=== PATIENT | male | born 1975 | race Caucasian/White ===

== ENCOUNTER 2021-07-19 13:16 | Emergency (ER) | payer OTHER ==
[~2021-07-19] VITALS: Ht 185.4 cm; Wt 105.2 kg
--- NOTE | 2021-07-19 14:25 | PHYS DOC ---
General Adult EDM: Chief Complaint: HEADACHE HPI: HPI: Patient is a 46-year-old male who presents to the emergency department for left- sided headache with tingling to his entire left side that started last night at 10 PM. Patient reports that his headache was worse but has been better now he rates it 4 out of 10. Patient denies a history of headaches. No treatment prior to arrival. Patient denies any unilateral weakness, chest pain, shortness of breath, nausea, vomiting, vision changes, photophobia or phonophobia. Review of Systems: Review of Systems: Eyes: See HPI HENT: See HPI Respiratory: See HPI Cardiovascular: See HPI GI: See HPI Neurologic: See HPI Allergies: Allergies: Allergies Coded Allergies Type Severity Reaction Last Updated Verified No Known Drug Allergies 07/19/21 No Physical Exam: PE: Constitutional: Well developed, well nourished, no acute distress, non-toxic appearance. [] HENT: Normocephalic, atraumatic, bilateral external ears normal, oropharynx moist, no oral exudates, nose normal. [] Eyes: PERRL, 5 mm bilaterally, EOMI, conjunctiva normal, no discharge. [] Neck: Normal range of motion, no tenderness, no neutral rigidity, supple, no stridor. [] Cardiovascular:Heart rate regular rhythm, no murmur [] Lungs & Thorax: Bilateral breath sounds clear to auscultation [] Abdomen: Bowel sounds normal, soft, no tenderness, no masses, no pulsatile masses. [] Skin: Warm, dry, no erythema, no rash. [] Back: No tenderness, normal range of motion Extremities: No tenderness, no cyanosis, no clubbing, ROM intact, no edema. [] Neurologic: Alert and oriented X 3, normal motor function, normal sensory function, no focal deficits noted, no limb ataxia, no pronator drift, patient moving all 4 extremities equally, sensation intact bilateral upper and lower extremities, no slurred speech Psychologic: Affect normal, judgement normal, mood normal. [] Current Patient Data: Labs: Laboratory Tests Test 07/19/21 14:15 White Blood Count 8.2 x10^3/uL Red Blood Count 5.34 x10^6/uL Hemoglobin 15.6 g/dL Hematocrit 45.8 % Mean Corpuscular Volume 86 fL Mean Corpuscular Hemoglobin 29 pg Mean Corpuscular Hemoglobin Concent 34 g/dL Red Cell Distribution Width 13.4 % Platelet Count 162 x10^3/uL Neutrophils (%) (Auto) 60 % Lymphocytes (%) (Auto) 30 % Monocytes (%) (Auto) 6 % Eosinophils (%) (Auto) 3 % Basophils (%) (Auto) 1 % Neutrophils # (Auto) 5.0 x10^3uL Lymphocytes # (Auto) 2.5 x10^3/uL Monocytes # (Auto) 0.5 x10^3/uL Eosinophils # (Auto) 0.3 x10^3/uL Basophils # (Auto) 0.0 x10^3/uL Sodium Level 136 mmol/L Potassium Level 3.9 mmol/L Chloride Level 102 mmol/L Carbon Dioxide Level 31 mmol/L Anion Gap 3 Blood Urea Nitrogen 19 mg/dL Creatinine 1.1 mg/dL Estimated GFR (Cockcroft-Gault) 72.7 BUN/Creatinine Ratio 17 Glucose Level 88 mg/dL Calcium Level 9.3 mg/dL Total Bilirubin 0.7 mg/dL Aspartate Amino Transf (AST/SGOT) 29 U/L Alanine Aminotransferase (ALT/SGPT) 40 U/L Alkaline Phosphatase 64 U/L Troponin I High Sensitivity 39 ng/L Total Protein 7.3 g/dL Albumin 4.2 g/dL Albumin/Globulin Ratio 1.4 Current Medications Medications (Trade) Dose Ordered Sig/Nay Route PRN Reason Start Time Stop Time Status Last Admin Dose Admin Sodium Chloride 1,000 ml @ 1,000 mls/hr 1X ONCE IV 07/19/21 14:30 07/19/21 15:29 DC 07/19/21 15:02 Prochlorperazine Edisylate (Compazine) 10 mg 1X ONCE IV 07/19/21 14:30 07/19/21 14:31 DC 07/19/21 15:04 Diphenhydramine HCl (Benadryl) 25 mg 1X ONCE IVP 07/19/21 14:30 07/19/21 14:31 DC 07/19/21 15:07 Ketorolac Tromethamine (Toradol 30mg Vial) 30 mg 1X ONCE IVP 07/19/21 14:30 07/19/21 14:31 DC 07/19/21 15:06 EKG: EKG: EKG performed by ER staff at 1417 shows sinus rhythm with a heart rate of 63, QTC is 412, no STEMI read by Dr. Salmeron [] Radiology/Procedures: Radiology/Procedures: [] Impressions: REASON: HEADACHE, L SIDED TINGLING PROCEDURE: CT HEAD WO CONTRAST EXAMINATION: CT head without IV contrast. INDICATION:46 years, Male, left-sided tingling. COMPARISON: None TECHNIQUE: Spiral acquisition of contiguous images from the skull base to the vertex were obtained. Sagittal and coronal 2D reformatted series were provided by the technologist. Soft tissue and bone window algorithms were reviewed. Exposure: One or more of the following individualized dose reduction techniques were utilized for this examination: 1. Automated exposure control 2. Adjustment of the mA and/or kV according to patient size 3. Use of iterative reconstruction technique. FINDINGS: Neither mass, midline shift, intracranial hemorrhage, acute/subacute ischemic changes, nor extraaxial fluid collections are seen. The brain parenchyma is normal in appearance. The ventricles are normal in size. The paranasal sinuses, mastoid air cells, and middle ears are clear.The orbital contents appear within normal limits. IMPRESSION: No evidence of acute intracranial abnormality. Electronically signed by: Ward Obando MD (07/19/2021 2:49 PM) [facility] DICTATED AND SIGNED BY: WARD OBANDO MD DATE: 07/19/21 144 CC: EMERGENCY,DEPARTMENT; CHIVO FLEMING APRN; PCP,NO ~ Heart Score: C/O Chest Pain: No Risk Factors: Risk Factors: DM, Current or recent (<one month) smoker, HTN, HLP, family history of CAD, obesity. Risk Scores: Score 0 - 3: 2.5% MACE over next 6 weeks - Discharge Home Score 4 - 6: 20.3% MACE over next 6 weeks - Admit for Clinical Observation Score 7 - 10: 72.7% MACE over next 6 weeks - Early Invasive Strategies Course & Med Decision Making: Course & Med Decision Making Pertinent Labs and Imaging studies reviewed. (See chart for details) [] Patient presents to the emergency department for left-sided headache with tingling down the left side of his body that started 10 PM last night. Patient reports he does not have a history of headaches. Work-up in the ER consisted of blood work including troponin, EGD, CT imaging of head patient was treated with migraine cocktail. Patient's work-up in the ER was unremarkable. Following treatment in the emergency department he reports that his headache has resolved but he continues to have mild tingling noted to his left side which has improved. Patient has an unremarkable neuro exam. His NIHSS was 0. Patient's sensation is intact to bilateral upper and lower extremities as well as face. Discussed with supervising physician. Patient's likely experiencing a complex migraine. He is advised to take Tylenol and ibuprofen at home for his pain and he was given neurology follow-up. I discussed with patient all findings and diagnostic testing as well as the need to follow-up with PCP for further evaluation and treatment or return to the ER if any new or worsening symptoms. Strict return precautions were also discussed at length. Patient voiced understanding and agreement with the plan. Patient is hemodynamically stable at the time of disposition. Dragon Disclaimer: Dragon Disclaimer: This electronic medical record was generated, in whole or in part, using a voice recognition dictation system. NIH Stroke Scale: NIH Stroke Scale Response (Comments) Value Level of Consciousness: 0 Alert/Responsive 0 LOC Questions: 0 Answers both correctly 0 LOC Commands: 0 Performs both tasks 0 Best Gaze: 0 Normal 0 Visual: 0 No visual loss 0 Facial Palsy: 0 Normal, symmetrical 0 Motor - Left Arm 0 No drift 0 Motor - Right Arm 0 No drift 0 Motor - Left Leg 0 No drift 0 Motor: Right Leg 0 No drift 0 Limb Ataxia: 0 Absent 0 Best Language: 0 Normal 0 Dysathria: 0 Normal 0 Extinction and Inattention: 0 Normal 0 Total 0 Departure Departure: Impression: Primary Impression: Headache Qualified Codes: R51.9 - Headache, unspecified Disposition: HOME / SELF CARE / HOMELESS Condition: GOOD Referrals: PCP,NO (PCP) Patient Instructions: Migraine Headache Additional Instructions: You are seen in the emergency department for headache and tingling. You are likely experiencing a complex migraine. Please take Tylenol and ibuprofen at home for your pain. Can also add Benadryl. Follow-up with your primary care provider tomorrow regarding your ER visit. You may need to follow-up with a neurologist on the status of this discharge paperwork. Please increase your fluids and rest. Return to the emergency department if you develop worsening of your headache, chest pain, shortness of breath, high fevers refractory treatment, intractable nausea or vomiting, confusion, speech changes, facial droop, vision changes pain or worsening concerns. CHIVO FLEMING DYNAMOMETER MECHANIC Jul 19, 2021 14:25
[2021-07-19] MEDS ORDERED: PROCHLORPERAZINE 10 MG/2 ML VIAL. IV ONE (14:30)
[2021-07-19] MEDS ORDERED: diphenhydrAMINE 50 MG/ML VIAL IVP ONE (14:30)
[2021-07-19] MEDS ORDERED: IV NORMAL SALINE 1,000ML 1,000 ML IV ONE (14:30)
[2021-07-19] MEDS ORDERED: KETOROLAC 30 MG/ML VIAL. IVP ONE (14:30)
[2021-07-19 14:31] LABS: BASO % 1 % (0-3); EOS # 0.3 x10^3/uL (0.0-0.7); EOS % 3 % (0-3); HEMATOCRIT 45.8 % (39.0-53.0); HEMOGLOBIN 15.6 g/dL (13.0-17.5); LYMPH # 2.5 x10^3/uL (1.0-4.8); LYMPH % 30 % (24-48); MEAN CORPUSCULAR HEMOGLOBIN 29 pg (25-35); MEAN CORPUSCULAR HGB CONC 34 g/dL (31-37); MEAN CORPUSCULAR VOLUME 86 fL (79-100); MONO # 0.5 x10^3/uL (0.0-1.1); MONO % 6 % (0-9); NEUT % 60 % (31-73); PLATELET COUNT 162 x10^3/uL (140-400); RED BLOOD COUNT 5.34 x10^6/uL (4.30-5.70); RED CELL DISTRIBUTION WIDTH 13.4 % (11.5-14.5); WHITE BLOOD COUNT 8.2 x10^3/uL (4.0-11.0)
[2021-07-19 14:43] LABS: CALCIUM 9.3 mg/dL (8.5-10.1); CREATININE 1.1 mg/dL (0.7-1.3); GFR 72.7; POTASSIUM 3.9 mmol/L (3.5-5.1)
[2021-07-19 14:49] LABS: ALBUMIN 4.2 g/dL (3.4-5.0); ALBUMIN/GLOBULIN RATIO 1.4 (1.0-1.7); TOTAL BILIRUBIN 0.7 mg/dL (0.2-1.0); TOTAL PROTEIN 7.3 g/dL (6.4-8.2)
--- NOTE | 2021-07-19 14:51 | RAD ---
EXAMINATION: CT head without IV contrast. INDICATION:46 years, Male, left-sided tingling. COMPARISON: None TECHNIQUE: Spiral acquisition of contiguous images from the skull base to the vertex were obtained. S agittal and coronal 2D reformatted series were provided by the technologist. Soft tissue and bone win ángel algorithms were reviewed. Exposure: One or more of the following individualized dose reduction techniques were utilized for thi s examination: 1. Automated exposure control 2. Adjustment of the mA and/or kV according to patient size 3. Use of iterative reconstruction technique. FINDINGS: Neither mass, midline shift, intracranial hemorrhage, acute/subacute ischemic changes, nor extraaxial fluid collections are seen. The brain parenchyma is normal in appearance. The ventricles are normal in size. The paranasal sinuses, mastoid air cells, and middle ears are clear.The orbital contents appear withi n normal limits. IMPRESSION: No evidence of acute intracranial abnormality. Electronically signed by: Ward Obando MD (07/19/2021 2:49 PM) [facility]
[2021-07-19 15:58] VITALS: BP 131/90
--- NOTE | 2021-07-19 21:51 | EKG ---
[address] [address] Test Date: 2021-07-19 Test Time: 14:17:17 Pat Name: WILSON HOLLAND Department: Room: Gender: M Flight Attendant Inflight Services: : 1975 Requested By: CHIVO FLEMING Order Number: [id number] Reading MD: Remington Levin Measurements Intervals [place] Rate: 63 P: 28 SD: 160 QRS: 12 QRSD: 88 T: 15 QT: 400 QTc: 412 Interpretive Statements SINUS RHYTHM Electronically Signed On 07-21-2021 17:01:02 CDT by Remington Levin
== END 2021-07-19 16:03 | disposition home or self-care (01) ==
LOC: ER 13:16
DX: R51.9 Headache, unspecified (principal); R20.2 Paresthesia of skin
CPT/HCPCS: 36415; 70450; 80053; 84484; 85025; 93005; 96361; 96374; 96375; 99285; J0780; J1200; J1885; J7030